=== PATIENT | male | born 1975 | race Caucasian/White ===

== ENCOUNTER 2020-03-09 15:12 | Outpatient (CLI) | payer OTHER ==
--- NOTE | 2020-03-09 17:29 | XRAY Report ---
PROCEDURE: Shoulder 3 View LT INDICATIONS: L SHOULDER PAIN TECHNIQUE: 3 views of the shoulder were acquired. COMPARISON: None. FINDINGS: Bones: No fractures or dislocations. No suspicious bony lesions. Visualized ribs appear intact. M ild to moderate acromioclavicular degenerative narrowing. There is a mild high riding appearance of t he humeral head. Soft tissues: No suspicious soft tissue calcifications. IMPRESSION: 1. Acromioclavicular degenerative change. 2. Mild high riding appearance of the humeral head which can be seen with rotator cuff pathology. Reviewed by: Daniela Baez MD on 03/09/2020 5:28 PM PDT Approved by: Daniela Baez MD on 03/09/2020 5:28 PM PDT Station ID: [id number]
== END 2020-03-09 15:13 | disposition home or self-care (01) ==
LOC: DI 15:12
PROVIDERS: ATTEND Internal Medicine
DX: M19.012 Primary osteoarthritis, left shoulder (principal)

== ENCOUNTER 2023-05-13 08:25 | Outpatient (CLI) | payer OTHER ==
--- NOTE | 2023-05-15 08:33 | MRI Report ---
PROCEDURE: SHOULDER WO - LT INDICATIONS: LEFT SHOULDER PAIN TECHNIQUE: Noncontrast oblique coronal T2 fast spin echo with fat saturation, oblique sagittal T1 spin echo and T2 fast spin echo with fat saturation, axial T1 spin echo and T2 fast spin echo with fat saturation t hrough the shoulder. COMPARISON: None. FINDINGS: Image quality: Excellent. Rotator cuff: Mild T2 signal elevation diffusely throughout the supraspinatus and infraspinatus tendo ns at the humeral insertion sites extending the muscular tendinous junctions, indicating tendinopathy . Superimposed low-grade bursal surface tearing of the mid and posterior supraspinatus tendon at the humeral insertion site. Low-grade intrasubstance tearing of the mid infraspinatus tendon at the humer al insertion site extending the muscular tendinous junction. Low-grade intrasubstance and articular s urface tearing of the lower subscapularis tendon at the humeral insertion site extending to the muscu lar tendinous junction. No rotator cuff muscle atrophy on sagittal images. Bones and bursae: No bone marrow contusions or fractures. Mild glenohumeral and moderate acromioclav icular joint degeneration. The acromion demonstrates conventional anatomy, without an os acromiale. No pathologic subacromial/subdeltoid bursal fluid is present. Capsule and soft tissues: In the absence of intra-articular contrast, the labrum and glenohumeral li gaments appear intact. The long head of the biceps tendon demonstrates normal location and morpholog y. The rotator interval appears normal, without fibrosis. The coracohumeral ligament is normal in t hickness. IMPRESSION: 1. 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 2. Low-grade tearing of the subscapularis. 3. Glenohumeral and acromioclavicular joint osteoarthritis. Reviewed by: Dom Hyde MD on 05/15/2023 8:32 AM PDT Approved by: Dom Hyde MD on 05/15/2023 8:32 AM PDT Station ID: [id number]
== END 2023-05-13 08:26 | disposition home or self-care (01) ==
LOC: DI 08:25
PROVIDERS: ATTEND Student in an Organized Health Care Education/Training Program
DX: M75.112 Incomplete rotator cuff tear or rupture of left shoulder, not specified as traumatic (principal); M19.012 Primary osteoarthritis, left shoulder